=== PATIENT | female | born 1935 | race African-American/Black ===

== ENCOUNTER 2019-08-22 19:39 | Inpatient (IN) | payer MEDICARE, MEDICAID ==
[~2019-08-22] VITALS: Ht 170.2 cm; Wt 81.3 kg
[2019-08-22] MEDS ORDERED: SODIUM CHLORIDE 0.9% 1,000 ML IV ONE (21:30)
[2019-08-22] MEDS ORDERED: AZITHROMYCIN 500 MG in DEXT 5% WATER 250 ML IV ONE (22:30)
[2019-08-22] MEDS ORDERED: CEFTRIAXONE 1 G PREMIX 50 ML IV ONE (22:30)
[2019-08-22 22:52] LABS: BASOPHILS % 0.5 % (0.0-2.0); EOSINOPHILS % 3.8 % (0.0-5.0); HEMATOCRIT. 29.5 % (36.0-48.0); HEMOGLOBIN. 9.6 g/dL (12.0-16.0); LYMPHOCYTES % 15.2 % (20.0-50.0); MEAN CORPUSCULAR HEMOGLOBIN 30.4 pg (28.0-32.0); MEAN CORPUSCULAR VOLUME 93.1 fL (81.0-99.0); MEAN PLATELET VOLUME 9.5 fl (7.4-10.4); MONOCYTES % 4.6 % (2.0-8.0); NEUTROPHILS % 75.9 % (40.0-76.0); PLATELET 189 x1000/uL (130-400); RED BLOOD CELL COUNT 3.17 mill/uL (4.2-5.4); RED CELL DISTRIBUTION WIDTH 15.6 % (11.6-14.6)
[2019-08-22 22:56] LABS: CHLORIDE 105 mEq/L (98-107); PROTHROMBIN TIME 10.4 sec (9.6-11.0)
[2019-08-22] MEDS ORDERED: FUROSEMIDE 20MG/2ML VIAL IVP ONE (23:30)
[2019-08-22] MEDS ORDERED: ASPIRIN 325MG EC TABLET PO ONE (23:30)
[2019-08-23 00:57] LABS: CLARITY URINE CLOUDY (CLEAR); COLOR URINE YELLOW (YELLOW); KETONES URINE NEGATIVE (NEGATIVE); LEUKOCYTE ESTERASE URINE 1+ (NEGATIVE); NITRITE URINE NEGATIVE (NEGATIVE); OCCULT BLOOD URINE NEGATIVE (NEGATIVE); PH URINE >=9.0 (4.5-8.0); PROTEIN URINE 2+ (NEGATIVE); SPECIFIC GRAVITY URINE 1.013 (1.005-1.030); UROBILINOGEN URINE 0.2 E.U./dL (0.2-1.0)
[2019-08-23] MEDS ORDERED: ONDANSETRON HCL 4MG/2ML INJ IV ONE (02:15)
[2019-08-23 08:10] VITALS: BP 164/72
[2019-08-23] MEDS ORDERED: DOCUSATE SODIUM 100MG CAPSULE PO PRN (08:15)
[2019-08-23] MEDS ORDERED: ACETAMINOPHEN 325MG TABLET PO PRN (08:15)
[2019-08-23] MEDS ORDERED: LORAZEPAM 2MG/ML CPJ IV PRN (08:15)
[2019-08-23] MEDS ORDERED: MORPHINE SULFATE 2 MG/ML CPJ (NOT FOR IM USE) IV PRN (08:15)
[2019-08-23] MEDS ORDERED: NA PHOS,M-B/NA PHOS,DI-BA ENEMA 118ML PR PRN (08:15)
[2019-08-23] MEDS ORDERED: DEXTROSE 50% WATER 50ML SYRINGE IV PRN (08:15)
[2019-08-23] MEDS ORDERED: ONDANSETRON HCL 4MG/2ML INJ IV PRN (08:15)
[2019-08-23] MEDS ORDERED: GUAIFENESIN 200MG/10ML SUGAR FREE UDC PO PRN (08:15)
[2019-08-23] MEDS ORDERED: HYDROCODONE/ACETAMINOPHEN 10/325MG TABLET PO PRN (08:15)
[2019-08-23] MEDS ORDERED: MAGNESIUM/ALUMINUM HYDROXIDE/SIMETHICONE 30ML UDC PO PRN (08:15)
[2019-08-23] MEDS ORDERED: IPRATROPIUM/ALBUTEROL 0.5-3(2.5)MG/3ML NEB NEB PRN (08:15)
[2019-08-23] MEDS ORDERED: DIPHENHYDRAMINE 50MG/ML VIAL IV PRN (08:15)
[2019-08-23 09:16] VITALS: BP 164/72
[2019-08-23] MEDS: ENOXAPARIN 40MG/0.4ML SYR SUBCUT SCH (11:32)
[2019-08-23] MEDS: CLONIDINE 0.1MG TABLET PO PRN ×2 (11:33→21:38)
[2019-08-23] MEDS: BLOOD SUGAR DIAGNOSTIC STRIP TEST SCH ×3 (11:49→20:15)
[2019-08-23] MEDS: INSULIN LISPRO 100 UNITS/ML SUBCUT SCH ×3 (11:51→20:15)
[2019-08-23 12:00] VITALS: BP 154/74
[2019-08-23] MEDS ORDERED: TOPUD PO (12:23)
[2019-08-23] MEDS ORDERED: AMLO2.5T45 MT (12:33)
[2019-08-23] MEDS ORDERED: ISOS60TA4 MT (12:33)
[2019-08-23] MEDS ORDERED: MIRT-91 MT (12:33)
[2019-08-23] MEDS ORDERED: HYDR-4001 MT (12:33)
[2019-08-23] MEDS ORDERED: CHOL100053 PO ×2 (12:33)
[2019-08-23] MEDS ORDERED: ASPI-1497 MT (12:33)
[2019-08-23] MEDS ORDERED: ALBU05 NEB (12:33)
[2019-08-23] MEDS ORDERED: [UNRECOGNIZED DRUG - CODE] MT (12:33)
[2019-08-23] MEDS ORDERED: LISI40TA4 MT (12:33)
[2019-08-23] MEDS ORDERED: ATOR-2 MT (12:33)
[2019-08-23] MEDS ORDERED: CEFTRIAXONE 2 G PREMIX 50 ML IV SCH (13:00)
[2019-08-23] MEDS: CEFTRIAXONE 2 G in DEXTROSE 5% WATER 50 ML IV SCH (14:23)
[2019-08-23] MEDS ORDERED: SODIUM CHLORIDE 0.9% 500 ML IV ONE (14:30)
[2019-08-23] MEDS: SODIUM CHLORIDE 0.9% INJ 3ML FLUSH IVF SCH ×2 (15:53→21:42)
[2019-08-23 16:00] VITALS: BP 147/76
[2019-08-23 17:39] LABS: T4 FREE 1.06 ng/dL (0.76-1.46)
[2019-08-23 17:40] LABS: CREATINE KINASE MB FRACTION 1.1 ng/mL (0.5-3.6)
[2019-08-23 20:00] VITALS: BP 169/64
[2019-08-24] VITALS (7 sets, daily range): BP systolic 137–197; BP diastolic 69–97
[2019-08-24 06:04] LABS: BASOPHILS % 0.6 % (0.0-2.0); EOSINOPHILS % 3.3 % (0.0-5.0); HEMATOCRIT. 29.5 % (36.0-48.0); HEMOGLOBIN. 9.9 g/dL (12.0-16.0); MEAN CORPUSCULAR HEMOGLOBIN 31.2 pg (28.0-32.0); MEAN CORPUSCULAR VOLUME 92.9 fL (81.0-99.0); MEAN PLATELET VOLUME 9.3 fl (7.4-10.4); MONOCYTES % 5.1 % (2.0-8.0); PLATELET 176 x1000/uL (130-400); RED BLOOD CELL COUNT 3.18 mill/uL (4.2-5.4); RED CELL DISTRIBUTION WIDTH 15.5 % (11.6-14.6)
[2019-08-24] MEDS: BLOOD SUGAR DIAGNOSTIC STRIP TEST SCH ×4 (06:11→21:42)
[2019-08-24] MEDS: SODIUM CHLORIDE 0.9% INJ 3ML FLUSH IVF SCH ×3 (06:14→21:42)
[2019-08-24] MEDS: INSULIN LISPRO 100 UNITS/ML SUBCUT SCH ×4 (06:16→21:43)
[2019-08-24 06:32] LABS: CHLORIDE 110 mEq/L (98-107)
[2019-08-24 06:51] LABS: CREATINE KINASE 93 IU/L (26-192)
[2019-08-24 06:54] LABS: CREATINE KINASE MB FRACTION 1.1 ng/mL (0.5-3.6)
[2019-08-24] MEDS: ASPIRIN 81MG TABLET PO SCH (08:35)
[2019-08-24] MEDS: ENOXAPARIN 40MG/0.4ML SYR SUBCUT SCH (08:35)
[2019-08-24] MEDS: SODIUM CHLORIDE 0.9% 1,000 ML IV SCH ×2 (08:43→22:03)
[2019-08-24] MEDS: HYDRALAZINE 20MG/ML VIAL IV PRN ×2 (09:33→21:44)
[2019-08-24] MEDS: LEVETIRACETAM 500MG TABLET PO SCH ×2 (14:16→22:03)
[2019-08-24] MEDS: CEFTRIAXONE 2 G in DEXTROSE 5% WATER 50 ML IV SCH (14:16)
[2019-08-25] VITALS: BP 150/80
[2019-08-25 08:00] VITALS: BP 166/71
[2019-08-25 09:44] LABS: CHLORIDE 111 mEq/L (98-107)
[2019-08-25 10:07] LABS: BASOPHILS % 0.6 % (0.0-2.0); EOSINOPHILS % 2.6 % (0.0-5.0); HEMATOCRIT. 27.6 % (36.0-48.0); HEMOGLOBIN. 9.2 g/dL (12.0-16.0); LYMPHOCYTES % 17.9 % (20.0-50.0); MEAN CORPUSCULAR HEMOGLOBIN 30.9 pg (28.0-32.0); MEAN CORPUSCULAR VOLUME 92.9 fL (81.0-99.0); MEAN PLATELET VOLUME 9.7 fl (7.4-10.4); MONOCYTES % 5.5 % (2.0-8.0); NEUTROPHILS % 73.4 % (40.0-76.0); PLATELET 178 x1000/uL (130-400); RED BLOOD CELL COUNT 2.97 mill/uL (4.2-5.4); RED CELL DISTRIBUTION WIDTH 15.8 % (11.6-14.6)
[2019-08-25] MEDS: ENOXAPARIN 40MG/0.4ML SYR SUBCUT SCH (10:11)
[2019-08-25] MEDS: ASPIRIN 81MG TABLET PO SCH (10:11)
[2019-08-25] MEDS: LEVETIRACETAM 500MG TABLET PO SCH (10:11)
[2019-08-25] MEDS: BLOOD SUGAR DIAGNOSTIC STRIP TEST SCH ×2 (11:45→17:36)
[2019-08-25 12:00] VITALS: BP 148/76
[2019-08-25] MEDS: INSULIN LISPRO 100 UNITS/ML SUBCUT SCH ×3 (12:11→17:15)
[2019-08-25] MEDS: SODIUM CHLORIDE 0.9% INJ 3ML FLUSH IVF SCH ×2 (14:00→14:37)
[2019-08-25] MEDS: CEFTRIAXONE 2 G in DEXTROSE 5% WATER 50 ML IV SCH (14:37)
[2019-08-25] MEDS: SODIUM CHLORIDE 0.9% 1,000 ML IV SCH (14:40)
[2019-08-25] MEDS ORDERED: LINEZOLID 600 MG PREMIX 300 ML IV SCH (15:00)
[2019-08-25 16:00] VITALS: BP 149/87
[2019-08-25 17:40] VITALS: BP 149/87
== END 2019-08-25 20:45 | disposition home health service (06) | DRG 53 ==
LOC: ER 19:39 → 8WST 08-23 00:02 → ENRESERV 08-23 07:22 → 5WST 08-24 23:21
PROVIDERS: ADMIT Internal Medicine; ATTEND Internal Medicine
DX: G40.909 Epilepsy, unspecified, not intractable, without status epilepticus (principal); I24.9 Acute ischemic heart disease, unspecified; Z93.1 Gastrostomy status; E44.1 Mild protein-calorie malnutrition; D64.9 Anemia, unspecified; E11.9 Type 2 diabetes mellitus without complications; D32.9 Benign neoplasm of meninges, unspecified; E78.00 Pure hypercholesterolemia, unspecified; F03.90 Unspecified dementia, unspecified severity, without behavioral disturbance, psychotic disturbance, mood disturbance, and anxiety; N39.0 Urinary tract infection, site not specified; K30 Functional dyspepsia; R26.89 Other abnormalities of gait and mobility; I11.9 Hypertensive heart disease without heart failure; K59.00 Constipation, unspecified; F41.9 Anxiety disorder, unspecified; E78.5 Hyperlipidemia, unspecified; I69.391 Dysphagia following cerebral infarction; Z74.01 Bed confinement status; Z68.28 Body mass index [BMI] 28.0-28.9, adult
CPT/HCPCS: 36415; 70551; 71045; 80048; 80053; 80061; 81003; 82550; 82553; 82962; 83036; 83605; 83880; 84439; 84443; 84484; 85025; 87077; 87186; 92610; 93005; 93306; 93970; 97162; 99291; A6261; C1893; J0360; J0456; J0696; J1650; J1815; J1940; J2020; J2405; J7030; J7040; J7060

== ENCOUNTER 2019-10-19 12:05 | Inpatient (IN) | payer MEDICARE, MEDICAID ==
[~2019-10-19] VITALS: Ht 162.6 cm; Wt 63.5 kg
[~2019-10-19 12:05] MED LIST: ALBU05 NEB; AMLO2.5T45 MT; ASPI-1497 MT; ATOR-2 MT; CHOL100053 PO; HYDR-4001 MT; ISOS60TA4 MT; LISI40TA4 MT; MIRT-91 MT; TOPUD PO; [UNRECOGNIZED DRUG - CODE] MT
[2019-10-19] MEDS ORDERED: SODIUM CHLORIDE 0.9% 1,000 ML IV ONE (12:24)
[2019-10-19 12:53] LABS: BASOPHILS % 0.9 % (0.0-2.0); EOSINOPHILS % 6.7 % (0.0-5.0); HEMATOCRIT. 29.4 % (36.0-48.0); HEMOGLOBIN. 9.8 g/dL (12.0-16.0); LYMPHOCYTES % 34.3 % (20.0-50.0); MEAN CORPUSCULAR HEMOGLOBIN 30.8 pg (28.0-32.0); MEAN CORPUSCULAR VOLUME 92.5 fL (81.0-99.0); MONOCYTES % 4.1 % (2.0-8.0); RED BLOOD CELL COUNT 3.17 mill/uL (4.2-5.4); RED CELL DISTRIBUTION WIDTH 15.7 % (11.6-14.6)
[2019-10-19 13:00] LABS: PROTHROMBIN TIME 10.2 sec (9.6-11.0)
[2019-10-19 13:03] LABS: CHLORIDE 110 mEq/L (98-107)
[2019-10-19 13:19] LABS: MEAN PLATELET VOLUME 9.1 fl (7.4-10.4); PLATELET 220 x1000/uL (130-400)
[2019-10-19 15:12] LABS: CLARITY URINE CLOUDY (CLEAR); COLOR URINE YELLOW (YELLOW); KETONES URINE NEGATIVE (NEGATIVE); LEUKOCYTE ESTERASE URINE 2+ (NEGATIVE); NITRITE URINE NEGATIVE (NEGATIVE); OCCULT BLOOD URINE 3+ (NEGATIVE); PROTEIN URINE 2+ (NEGATIVE); SPECIFIC GRAVITY URINE 1.007 (1.005-1.030); UROBILINOGEN URINE 0.2 E.U./dL (0.2-1.0)
[2019-10-19] MEDS ORDERED: CEFTRIAXONE 1 G PREMIX 50 ML IV ONE (15:30)
[2019-10-19] MEDS ORDERED: ASPIRIN 81MG TABLET PO ONE (17:30)
[2019-10-19] MEDS ORDERED: CLONIDINE 0.1MG TABLET PO ONE (19:45)
[2019-10-19] MEDS ORDERED: AMLODIPINE 5MG TABLET PO ONE (19:45)
[2019-10-19 23:35] VITALS: BP 190/86
[2019-10-20] VITALS (8 sets, daily range): BP systolic 115–190; BP diastolic 56–90
[2019-10-20] MEDS ORDERED: CEFTRIAXONE 2 G in DEXTROSE 5% WATER 50 ML IV SCH (00:45)
[2019-10-20] MEDS ORDERED: CEFTRIAXONE 1 G PREMIX 50 ML IV SCH (02:00)
[2019-10-20] MEDS ORDERED: HYDROCODONE/ACETAMINOPHEN 5/325MG TABLET PO PRN (02:45)
[2019-10-20] MEDS ORDERED: ACETAMINOPHEN 500MG TABLET PO PRN (02:45)
[2019-10-20] MEDS ORDERED: AMLODIPINE 2.5MG TABLET PO SCH (03:30)
[2019-10-20] MEDS: SODIUM CHLORIDE 0.9% 1,000 ML IV SCH ×2 (04:46→18:05)
[2019-10-20] MEDS: LISINOPRIL 40MG TABLET PO SCH (05:42)
[2019-10-20] MEDS: ISOSORBIDE MONONITRATE 60MG TABLET SR 24HR PO SCH (05:49)
[2019-10-20] MEDS: CHOLECALCIFEROL (D3) 1000 UNIT TABLET PO SCH (09:16)
[2019-10-20] MEDS: ASPIRIN 81MG EC TABLET PO SCH (09:17)
[2019-10-20] MEDS: ENOXAPARIN 40MG/0.4ML SYR SUBCUT SCH (09:17)
[2019-10-20 09:49] LABS: BASOPHILS % 0.7 % (0.0-2.0); EOSINOPHILS % 3.3 % (0.0-5.0); HEMATOCRIT. 27.8 % (36.0-48.0); HEMOGLOBIN. 9.1 g/dL (12.0-16.0); MEAN CORPUSCULAR HEMOGLOBIN 30.6 pg (28.0-32.0); MEAN CORPUSCULAR VOLUME 93.1 fL (81.0-99.0); MEAN PLATELET VOLUME 8.6 fl (7.4-10.4); MONOCYTES % 4.1 % (2.0-8.0); NEUTROPHILS % 65.9 % (40.0-76.0); PLATELET 183 x1000/uL (130-400); RED BLOOD CELL COUNT 2.99 mill/uL (4.2-5.4); RED CELL DISTRIBUTION WIDTH 15.6 % (11.6-14.6)
[2019-10-20 09:55] LABS: CHLORIDE 113 mEq/L (98-107)
[2019-10-20] MEDS ORDERED: DIATR MEGLU/DIATRIZOATE SOLN 30ML ONE (12:37)
[2019-10-20] MEDS: CEFTRIAXONE 2 G in DEXTROSE 5% WATER 50 ML IV SCH (13:54)
[2019-10-20 16:43] LABS: CREATINE KINASE MB FRACTION 1.1 ng/mL (0.5-3.6)
[2019-10-20] MEDS: ATORVASTATIN CALCIUM 40MG TABLET PO SCH (20:33)
[2019-10-20] MEDS: MIRTAZAPINE 15MG TABLET PO SCH (20:33)
[2019-10-20] MEDS: HYDRALAZINE 20MG/ML VIAL IV PRN (20:35)
[2019-10-21] VITALS (7 sets, daily range): BP systolic 98–189; BP diastolic 51–92
[2019-10-21] MEDS: HYDRALAZINE 20MG/ML VIAL IV PRN ×2 (01:27→05:37)
[2019-10-21] MEDS: SODIUM CHLORIDE 0.9% 1,000 ML IV SCH (05:33)
[2019-10-21 08:29] LABS: BASOPHILS % 0.4 % (0.0-2.0); EOSINOPHILS % 0.5 % (0.0-5.0); HEMATOCRIT. 28.6 % (36.0-48.0); HEMOGLOBIN. 9.3 g/dL (12.0-16.0); LYMPHOCYTES % 12.2 % (20.0-50.0); MEAN CORPUSCULAR HEMOGLOBIN 29.7 pg (28.0-32.0); MEAN CORPUSCULAR VOLUME 91.6 fL (81.0-99.0); MEAN PLATELET VOLUME 9.3 fl (7.4-10.4); NEUTROPHILS % 83.9 % (40.0-76.0); PLATELET 222 x1000/uL (130-400); RED BLOOD CELL COUNT 3.12 mill/uL (4.2-5.4); RED CELL DISTRIBUTION WIDTH 15.9 % (11.6-14.6)
[2019-10-21 08:48] LABS: CHLORIDE 117 mEq/L (98-107)
[2019-10-21] MEDS ORDERED: AMLODIPINE 5MG TABLET PO SCH (09:00)
[2019-10-21] MEDS: ISOSORBIDE MONONITRATE 60MG TABLET SR 24HR PO SCH (10:29)
[2019-10-21] MEDS: ASPIRIN 81MG EC TABLET PO SCH (10:30)
[2019-10-21] MEDS: LISINOPRIL 40MG TABLET PO SCH (10:33)
[2019-10-21] MEDS: ENOXAPARIN 40MG/0.4ML SYR SUBCUT SCH (10:35)
[2019-10-21] MEDS: AMLODIPINE 5MG TABLET PO SCH ×2 (10:36→20:58)
[2019-10-21] MEDS: CHOLECALCIFEROL (D3) 1000 UNIT TABLET PO SCH (10:42)
[2019-10-21] MEDS: CEFTRIAXONE 2 G in DEXTROSE 5% WATER 50 ML IV SCH (14:04)
[2019-10-21] MEDS ORDERED: POTASSIUM CHLORIDE 20MEQ TABLET SR PO NR (16:15)
[2019-10-21] MEDS: ATORVASTATIN CALCIUM 40MG TABLET PO SCH (20:57)
[2019-10-21] MEDS: MIRTAZAPINE 15MG TABLET PO SCH (20:57)
[2019-10-21] MEDS: METOPROLOL TARTRATE 25MG TABLET PO SCH (21:00)
[2019-10-22] VITALS: BP 136/65
[2019-10-22 04:00] VITALS: BP 172/72
[2019-10-22 08:00] VITALS: BP 178/85
[2019-10-22] MEDS: ENOXAPARIN 40MG/0.4ML SYR SUBCUT SCH (08:56)
[2019-10-22] MEDS: LISINOPRIL 40MG TABLET PO SCH (08:57)
[2019-10-22] MEDS: CHOLECALCIFEROL (D3) 1000 UNIT TABLET PO SCH (08:57)
[2019-10-22] MEDS: ISOSORBIDE MONONITRATE 60MG TABLET SR 24HR PO SCH (08:57)
[2019-10-22] MEDS: AMLODIPINE 5MG TABLET PO SCH ×2 (08:57→20:40)
[2019-10-22] MEDS: METOPROLOL TARTRATE 25MG TABLET PO SCH (09:01)
[2019-10-22 09:46] LABS: CHLORIDE 119 mEq/L (98-107)
[2019-10-22 09:50] LABS: BASOPHILS % 0.5 % (0.0-2.0); EOSINOPHILS % 6.6 % (0.0-5.0); HEMOGLOBIN. 9.3 g/dL (12.0-16.0); LYMPHOCYTES % 17.8 % (20.0-50.0); MEAN CORPUSCULAR HEMOGLOBIN 31.8 pg (28.0-32.0); MEAN CORPUSCULAR VOLUME 92.7 fL (81.0-99.0); MEAN PLATELET VOLUME 9.3 fl (7.4-10.4); NEUTROPHILS % 71.1 % (40.0-76.0); PLATELET 198 x1000/uL (130-400); RED BLOOD CELL COUNT 2.91 mill/uL (4.2-5.4); RED CELL DISTRIBUTION WIDTH 16.4 % (11.6-14.6)
[2019-10-22 12:00] VITALS: BP 123/75
[2019-10-22] MEDS: ASPIRIN 81MG EC TABLET PO SCH (14:29)
[2019-10-22] MEDS: HYDRALAZINE HCL 25MG TABLET PO SCH ×2 (15:12→20:41)
[2019-10-22] MEDS: MEROPENEM 500 MG in SODIUM CHLORIDE 0.9% 50 ML IV SCH ×2 (15:12→20:41)
[2019-10-22 16:00] VITALS: BP 144/69
[2019-10-22 20:00] VITALS: BP 175/83
[2019-10-22] MEDS: ATORVASTATIN CALCIUM 40MG TABLET PO SCH (20:39)
[2019-10-22] MEDS: METOPROLOL TARTRATE 50MG TABLET PO SCH (20:40)
[2019-10-22] MEDS: MIRTAZAPINE 15MG TABLET PO SCH (20:40)
[2019-10-23] VITALS: BP 178/83
[2019-10-23] MEDS: HYDRALAZINE 20MG/ML VIAL IV PRN (00:04)
[2019-10-23 04:00] VITALS: BP 130/61
[2019-10-23] MEDS: MEROPENEM 500 MG in SODIUM CHLORIDE 0.9% 50 ML IV SCH ×3 (05:34→22:03)
[2019-10-23] MEDS: HYDRALAZINE HCL 25MG TABLET PO SCH ×3 (05:35→22:00)
[2019-10-23 08:00] VITALS: BP 164/83
[2019-10-23 08:07] LABS: BASOPHILS % 0.5 % (0.0-2.0); EOSINOPHILS % 7.6 % (0.0-5.0); HEMATOCRIT. 29.5 % (36.0-48.0); HEMOGLOBIN. 9.9 g/dL (12.0-16.0); LYMPHOCYTES % 26.7 % (20.0-50.0); MEAN CORPUSCULAR HEMOGLOBIN 30.8 pg (28.0-32.0); MEAN PLATELET VOLUME 9.3 fl (7.4-10.4); MONOCYTES % 4.9 % (2.0-8.0); NEUTROPHILS % 60.3 % (40.0-76.0); PLATELET 210 x1000/uL (130-400); RED BLOOD CELL COUNT 3.21 mill/uL (4.2-5.4); RED CELL DISTRIBUTION WIDTH 16.1 % (11.6-14.6)
[2019-10-23 08:23] LABS: CHLORIDE 117 mEq/L (98-107)
[2019-10-23] MEDS: ENOXAPARIN 40MG/0.4ML SYR SUBCUT SCH (09:53)
[2019-10-23] MEDS: CHOLECALCIFEROL (D3) 1000 UNIT TABLET PO SCH (09:53)
[2019-10-23] MEDS: LISINOPRIL 40MG TABLET PO SCH (09:54)
[2019-10-23] MEDS: ISOSORBIDE MONONITRATE 60MG TABLET SR 24HR PO SCH (09:54)
[2019-10-23] MEDS: AMLODIPINE 5MG TABLET PO SCH ×2 (09:54→22:01)
[2019-10-23] MEDS: METOPROLOL TARTRATE 50MG TABLET PO SCH ×2 (09:54→22:02)
[2019-10-23] MEDS: ASPIRIN 81MG EC TABLET PO SCH (09:54)
[2019-10-23 12:00] VITALS: BP 149/64
[2019-10-23 16:00] VITALS: BP 165/76
[2019-10-23 20:00] VITALS: BP 164/77
[2019-10-23] MEDS: MIRTAZAPINE 15MG TABLET PO SCH (22:00)
[2019-10-23] MEDS: ATORVASTATIN CALCIUM 40MG TABLET PO SCH (22:02)
[2019-10-24] VITALS: BP 160/77
[2019-10-24 04:00] VITALS: BP 185/78
[2019-10-24] MEDS: MEROPENEM 500 MG in SODIUM CHLORIDE 0.9% 50 ML IV SCH ×3 (05:40→21:33)
[2019-10-24] MEDS: HYDRALAZINE HCL 25MG TABLET PO SCH ×3 (05:50→23:47)
[2019-10-24 07:39] LABS: BASOPHILS % 0.8 % (0.0-2.0); EOSINOPHILS % 3.4 % (0.0-5.0); HEMATOCRIT. 26.8 % (36.0-48.0); HEMOGLOBIN. 8.9 g/dL (12.0-16.0); LYMPHOCYTES % 22.9 % (20.0-50.0); MEAN CORPUSCULAR HEMOGLOBIN 31.3 pg (28.0-32.0); MEAN CORPUSCULAR VOLUME 93.6 fL (81.0-99.0); MEAN PLATELET VOLUME 9.7 fl (7.4-10.4); NEUTROPHILS % 68.9 % (40.0-76.0); PLATELET 173 x1000/uL (130-400); RED BLOOD CELL COUNT 2.86 mill/uL (4.2-5.4); RED CELL DISTRIBUTION WIDTH 16.6 % (11.6-14.6)
[2019-10-24 07:44] LABS: CHLORIDE 117 mEq/L (98-107)
[2019-10-24 08:00] VITALS: BP 188/76
[2019-10-24] MEDS: ISOSORBIDE MONONITRATE 60MG TABLET SR 24HR PO SCH (08:47)
[2019-10-24] MEDS: METOPROLOL TARTRATE 50MG TABLET PO SCH ×2 (08:47→20:18)
[2019-10-24] MEDS: ASPIRIN 81MG EC TABLET PO SCH (08:47)
[2019-10-24] MEDS: ASCORBIC ACID 500 MG TABLET PO SCH (08:47)
[2019-10-24] MEDS: CHOLECALCIFEROL (D3) 1000 UNIT TABLET PO SCH (08:48)
[2019-10-24] MEDS: LISINOPRIL 40MG TABLET PO SCH (08:49)
[2019-10-24] MEDS: AMLODIPINE 5MG TABLET PO SCH ×2 (08:49→20:18)
[2019-10-24] MEDS: ENOXAPARIN 40MG/0.4ML SYR SUBCUT SCH (08:49)
[2019-10-24] MEDS ORDERED: ZINC SULFATE 220 MG ( 50 ) CAPSULE PO NR (09:00)
[2019-10-24 12:00] VITALS: BP 132/66
[2019-10-24 16:00] VITALS: BP 145/76
[2019-10-24 20:00] VITALS: BP 171/74
[2019-10-24] MEDS: ATORVASTATIN CALCIUM 40MG TABLET PO SCH (20:18)
[2019-10-24] MEDS: MIRTAZAPINE 15MG TABLET PO SCH (20:45)
[2019-10-25] VITALS: BP 158/81
[2019-10-25 04:00] VITALS: BP 137/53
[2019-10-25] MEDS: MEROPENEM 500 MG in SODIUM CHLORIDE 0.9% 50 ML IV SCH ×3 (06:06→22:34)
[2019-10-25] MEDS: HYDRALAZINE HCL 25MG TABLET PO SCH ×3 (06:06→22:35)
[2019-10-25 07:37] LABS: BASOPHILS % 0.7 % (0.0-2.0); EOSINOPHILS % 5.7 % (0.0-5.0); HEMATOCRIT. 28.1 % (36.0-48.0); HEMOGLOBIN. 9.2 g/dL (12.0-16.0); LYMPHOCYTES % 33.4 % (20.0-50.0); MEAN CORPUSCULAR HEMOGLOBIN 30.5 pg (28.0-32.0); MEAN CORPUSCULAR VOLUME 92.9 fL (81.0-99.0); MEAN PLATELET VOLUME 9.2 fl (7.4-10.4); NEUTROPHILS % 54.2 % (40.0-76.0); PLATELET 178 x1000/uL (130-400); RED BLOOD CELL COUNT 3.03 mill/uL (4.2-5.4); RED CELL DISTRIBUTION WIDTH 16.3 % (11.6-14.6)
[2019-10-25 08:00] VITALS: BP 169/75
[2019-10-25 08:08] LABS: CHLORIDE 116 mEq/L (98-107)
[2019-10-25] MEDS: AMLODIPINE 5MG TABLET PO SCH ×2 (09:18→20:28)
[2019-10-25] MEDS: ASPIRIN 81MG EC TABLET PO SCH (09:18)
[2019-10-25] MEDS: LISINOPRIL 40MG TABLET PO SCH (09:19)
[2019-10-25] MEDS: ASCORBIC ACID 500 MG TABLET PO SCH (09:19)
[2019-10-25] MEDS: METOPROLOL TARTRATE 50MG TABLET PO SCH ×2 (09:19→20:29)
[2019-10-25] MEDS: ISOSORBIDE MONONITRATE 60MG TABLET SR 24HR PO SCH (09:19)
[2019-10-25] MEDS: ENOXAPARIN 40MG/0.4ML SYR SUBCUT SCH (09:20)
[2019-10-25] MEDS: CHOLECALCIFEROL (D3) 1000 UNIT TABLET PO SCH (09:30)
[2019-10-25 12:00] VITALS: BP 110/59
[2019-10-25 16:00] VITALS: BP 148/57
[2019-10-25 16:22] LABS: BASOPHILS % 0.6 % (0.0-2.0); HEMOGLOBIN. 8.2 g/dL (12.0-16.0); LYMPHOCYTES % 32.4 % (20.0-50.0); MEAN CORPUSCULAR HEMOGLOBIN 30.2 pg (28.0-32.0); MEAN PLATELET VOLUME 9.6 fl (7.4-10.4); MONOCYTES % 5.3 % (2.0-8.0); NEUTROPHILS % 54.7 % (40.0-76.0); PLATELET 176 x1000/uL (130-400); RED BLOOD CELL COUNT 2.72 mill/uL (4.2-5.4)
[2019-10-25 16:25] LABS: PROTHROMBIN TIME 11.2 sec (9.6-11.0)
[2019-10-25 16:59] LABS: CHLORIDE 117 mEq/L (98-107)
[2019-10-25 20:00] VITALS: BP 152/71
[2019-10-25] MEDS: MIRTAZAPINE 15MG TABLET PO SCH (20:28)
[2019-10-25] MEDS: ATORVASTATIN CALCIUM 40MG TABLET PO SCH (20:28)
[2019-10-26] VITALS: BP 148/81
[2019-10-26 04:00] VITALS: BP 142/57
[2019-10-26] MEDS: MEROPENEM 500 MG in SODIUM CHLORIDE 0.9% 50 ML IV SCH ×3 (05:31→22:44)
[2019-10-26] MEDS: HYDRALAZINE HCL 25MG TABLET PO SCH ×3 (06:00→22:44)
[2019-10-26 07:35] LABS: BASOPHILS % 0.6 % (0.0-2.0); EOSINOPHILS % 6.5 % (0.0-5.0); HEMATOCRIT. 28.1 % (36.0-48.0); HEMOGLOBIN. 9.5 g/dL (12.0-16.0); LYMPHOCYTES % 34.3 % (20.0-50.0); MEAN CORPUSCULAR HEMOGLOBIN 31.2 pg (28.0-32.0); MEAN CORPUSCULAR VOLUME 92.4 fL (81.0-99.0); MEAN PLATELET VOLUME 9.6 fl (7.4-10.4); MONOCYTES % 6.5 % (2.0-8.0); NEUTROPHILS % 52.1 % (40.0-76.0); PLATELET 176 x1000/uL (130-400); RED BLOOD CELL COUNT 3.04 mill/uL (4.2-5.4); RED CELL DISTRIBUTION WIDTH 16.1 % (11.6-14.6)
[2019-10-26 08:00] VITALS: BP 171/72
[2019-10-26 08:08] LABS: CHLORIDE 115 mEq/L (98-107)
[2019-10-26] MEDS: CHOLECALCIFEROL (D3) 1000 UNIT TABLET PO SCH (09:00)
[2019-10-26] MEDS: LISINOPRIL 40MG TABLET PO SCH (09:00)
[2019-10-26] MEDS: ENOXAPARIN 40MG/0.4ML SYR SUBCUT SCH (09:00)
[2019-10-26] MEDS: ASPIRIN 81MG EC TABLET PO SCH (09:00)
[2019-10-26] MEDS: ISOSORBIDE MONONITRATE 60MG TABLET SR 24HR PO SCH (09:00)
[2019-10-26] MEDS: AMLODIPINE 5MG TABLET PO SCH ×2 (09:00→21:43)
[2019-10-26] MEDS: METOPROLOL TARTRATE 50MG TABLET PO SCH ×2 (09:00→21:43)
[2019-10-26] MEDS: ASCORBIC ACID 500 MG TABLET PO SCH (09:00)
[2019-10-26 12:00] VITALS: BP 124/75
[2019-10-26] MEDS: HYDRALAZINE 20MG/ML VIAL IV PRN ×4 (14:30→14:45)
[2019-10-26 16:00] VITALS: BP 153/65
[2019-10-26 20:00] VITALS: BP 146/62
[2019-10-26] MEDS: ATORVASTATIN CALCIUM 40MG TABLET PO SCH (21:43)
[2019-10-26] MEDS: MIRTAZAPINE 15MG TABLET PO SCH (21:43)
[2019-10-27] VITALS: BP 141/60
[2019-10-27 04:00] VITALS: BP 139/58
[2019-10-27 06:34] LABS: CHLORIDE 118 mEq/L (98-107)
[2019-10-27] MEDS: MEROPENEM 500 MG in SODIUM CHLORIDE 0.9% 50 ML IV SCH ×3 (06:54→21:55)
[2019-10-27] MEDS: HYDRALAZINE HCL 25MG TABLET PO SCH ×3 (06:54→21:56)
[2019-10-27 07:46] LABS: BASOPHILS % 0.8 % (0.0-2.0); EOSINOPHILS % 6.6 % (0.0-5.0); HEMOGLOBIN. 8.2 g/dL (12.0-16.0); LYMPHOCYTES % 38.4 % (20.0-50.0); MEAN CORPUSCULAR HEMOGLOBIN 30.9 pg (28.0-32.0); MEAN CORPUSCULAR VOLUME 91.7 fL (81.0-99.0); MEAN PLATELET VOLUME 9.7 fl (7.4-10.4); NEUTROPHILS % 47.2 % (40.0-76.0); PLATELET 181 x1000/uL (130-400); RED BLOOD CELL COUNT 2.65 mill/uL (4.2-5.4); RED CELL DISTRIBUTION WIDTH 15.9 % (11.6-14.6)
[2019-10-27 08:00] VITALS: BP 136/76
[2019-10-27 08:08] LABS: HEMATOCRIT. 24.3 % (36.0-48.0)
[2019-10-27] MEDS: ENOXAPARIN 40MG/0.4ML SYR SUBCUT SCH (09:35)
[2019-10-27] MEDS: ASCORBIC ACID 500 MG TABLET PO SCH (09:36)
[2019-10-27] MEDS: METOPROLOL TARTRATE 50MG TABLET PO SCH ×2 (09:36→21:56)
[2019-10-27] MEDS: ASPIRIN 81MG EC TABLET PO SCH (09:36)
[2019-10-27] MEDS: LISINOPRIL 40MG TABLET PO SCH (09:36)
[2019-10-27] MEDS: CHOLECALCIFEROL (D3) 1000 UNIT TABLET PO SCH (09:36)
[2019-10-27] MEDS: ISOSORBIDE MONONITRATE 60MG TABLET SR 24HR PO SCH (09:37)
[2019-10-27] MEDS: AMLODIPINE 5MG TABLET PO SCH ×2 (09:37→21:56)
[2019-10-27 12:00] VITALS: BP 129/60
[2019-10-27 16:00] VITALS: BP 118/53
[2019-10-27 20:00] VITALS: BP 134/57
[2019-10-27] MEDS: MIRTAZAPINE 15MG TABLET PO SCH (21:55)
[2019-10-27] MEDS: ATORVASTATIN CALCIUM 40MG TABLET PO SCH (21:55)
[2019-10-28] VITALS: BP 157/67
[2019-10-28 04:00] VITALS: BP 185/75
[2019-10-28] MEDS: HYDRALAZINE 20MG/ML VIAL IV PRN (04:19)
[2019-10-28] MEDS: HYDRALAZINE HCL 25MG TABLET PO SCH ×3 (06:49→22:01)
[2019-10-28] MEDS: MEROPENEM 500 MG in SODIUM CHLORIDE 0.9% 50 ML IV SCH (06:49)
[2019-10-28 08:00] VITALS: BP 162/70
[2019-10-28] MEDS: AMLODIPINE 5MG TABLET PO SCH ×2 (09:25→22:01)
[2019-10-28] MEDS: LISINOPRIL 40MG TABLET PO SCH (09:26)
[2019-10-28] MEDS: ASCORBIC ACID 500 MG TABLET PO SCH (09:26)
[2019-10-28] MEDS: CHOLECALCIFEROL (D3) 1000 UNIT TABLET PO SCH (09:26)
[2019-10-28] MEDS: ASPIRIN 81MG EC TABLET PO SCH (09:27)
[2019-10-28] MEDS: METOPROLOL TARTRATE 50MG TABLET PO SCH ×2 (09:27→22:03)
[2019-10-28] MEDS: ISOSORBIDE MONONITRATE 60MG TABLET SR 24HR PO SCH (09:28)
[2019-10-28] MEDS: ENOXAPARIN 40MG/0.4ML SYR SUBCUT SCH (09:29)
[2019-10-28 12:00] VITALS: BP 134/59
[2019-10-28 16:00] VITALS: BP 125/57
[2019-10-28 20:00] VITALS: BP 144/66
[2019-10-28] MEDS: MIRTAZAPINE 15MG TABLET PO SCH (22:01)
[2019-10-28] MEDS: ATORVASTATIN CALCIUM 40MG TABLET PO SCH (22:02)
[2019-10-29] VITALS: BP 165/77
[2019-10-29 00:57] VITALS: BP 130/85
[2019-10-29 04:00] VITALS: BP 132/60
[2019-10-29] MEDS: HYDRALAZINE HCL 25MG TABLET PO SCH ×4 (06:20→21:14)
[2019-10-29] MEDS: LISINOPRIL 40MG TABLET PO SCH (09:00)
[2019-10-29] MEDS: ISOSORBIDE MONONITRATE 60MG TABLET SR 24HR PO SCH (09:00)
[2019-10-29] MEDS: CHOLECALCIFEROL (D3) 1000 UNIT TABLET PO SCH (09:00)
[2019-10-29] MEDS: METOPROLOL TARTRATE 50MG TABLET PO SCH ×2 (11:04→20:44)
[2019-10-29] MEDS: ASCORBIC ACID 500 MG TABLET PO SCH (11:05)
[2019-10-29] MEDS: AMLODIPINE 5MG TABLET PO SCH ×2 (11:05→20:43)
[2019-10-29] MEDS: ASPIRIN 81MG EC TABLET PO SCH (11:06)
[2019-10-29] MEDS: ENOXAPARIN 40MG/0.4ML SYR SUBCUT SCH (11:06)
[2019-10-29 16:26] LABS: BASOPHILS % 0.7 % (0.0-2.0); EOSINOPHILS % 5.4 % (0.0-5.0); HEMATOCRIT. 29.8 % (36.0-48.0); HEMOGLOBIN. 9.8 g/dL (12.0-16.0); LYMPHOCYTES % 34.1 % (20.0-50.0); MEAN CORPUSCULAR HEMOGLOBIN 30.6 pg (28.0-32.0); MEAN CORPUSCULAR VOLUME 93.5 fL (81.0-99.0); MEAN PLATELET VOLUME 10.1 fl (7.4-10.4); MONOCYTES % 4.6 % (2.0-8.0); NEUTROPHILS % 55.2 % (40.0-76.0); PLATELET 181 x1000/uL (130-400); RED BLOOD CELL COUNT 3.18 mill/uL (4.2-5.4); RED CELL DISTRIBUTION WIDTH 16.1 % (11.6-14.6)
[2019-10-29 16:38] LABS: CHLORIDE 112 mEq/L (98-107)
[2019-10-29 19:05] VITALS: BP 104/59
[2019-10-29 20:00] VITALS: BP 170/72
[2019-10-29] MEDS: ATORVASTATIN CALCIUM 40MG TABLET PO SCH (20:43)
[2019-10-29] MEDS: MIRTAZAPINE 15MG TABLET PO SCH (20:43)
[2019-10-30] VITALS: BP 164/77
[2019-10-30] MEDS: HYDRALAZINE 20MG/ML VIAL IV PRN (00:28)
[2019-10-30 04:00] VITALS: BP 159/73
[2019-10-30] MEDS: HYDRALAZINE HCL 25MG TABLET PO SCH (06:19)
[2019-10-30 08:00] VITALS: BP 115/68
[2019-10-30] MEDS ORDERED: AMLODIPINE 10MG TABLET PO SCH (08:00)
== END 2019-10-30 10:00 | DRG 190 ==
LOC: ER 12:05 → 5WST 16:13 → EDBEDREQ 16:16 → ENRESERV 21:16
PROVIDERS: ADMIT Internal Medicine; ATTEND Internal Medicine
DX: I21.4 Non-ST elevation (NSTEMI) myocardial infarction (principal); E43 Unspecified severe protein-calorie malnutrition; G82.50 Quadriplegia, unspecified; G93.41 Metabolic encephalopathy; N17.9 Acute kidney failure, unspecified; E11.22 Type 2 diabetes mellitus with diabetic chronic kidney disease; E86.0 Dehydration; K94.29 Other complications of gastrostomy; N30.90 Cystitis, unspecified without hematuria; B96.20 Unspecified Escherichia coli [E. coli] as the cause of diseases classified elsewhere; D63.8 Anemia in other chronic diseases classified elsewhere; E78.5 Hyperlipidemia, unspecified; F03.90 Unspecified dementia, unspecified severity, without behavioral disturbance, psychotic disturbance, mood disturbance, and anxiety; J44.9 Chronic obstructive pulmonary disease, unspecified; R62.7 Adult failure to thrive; E78.00 Pure hypercholesterolemia, unspecified; K57.90 Diverticulosis of intestine, part unspecified, without perforation or abscess without bleeding; N18.9 Chronic kidney disease, unspecified; R74.0 Nonspecific elevation of levels of transaminase and lactic acid dehydrogenase [LDH]; Y83.3 Surgical operation with formation of external stoma as the cause of abnormal reaction of the patient, or of later complication, without mention of misadventure at the time of the procedure; I12.9 Hypertensive chronic kidney disease with stage 1 through stage 4 chronic kidney disease, or unspecified chronic kidney disease; Z82.49 Family history of ischemic heart disease and other diseases of the circulatory system; Z87.891 Personal history of nicotine dependence; Z68.24 Body mass index [BMI] 24.0-24.9, adult; Z74.01 Bed confinement status; Z79.899 Other long term (current) drug therapy; Y92.89 Other specified places as the place of occurrence of the external cause; I69.320 Aphasia following cerebral infarction
CPT/HCPCS: 36415; 71045; 74018; 80048; 80053; 80076; 81003; 82550; 82553; 83735; 83880; 84484; 85025; 87077; 87186; 92610; 93005; 97161; 99285; J0360; J0696; J1650; J2185; J7030; J7060; Q9963